=== PATIENT | female | born 1980 | race Caucasian/White ===

== ENCOUNTER → 2018-07-13 10:56 | Outpatient (REF) | payer BC, SELFPAY ==
--- NOTE | 2018-07-13 10:36 | SKI_PTH ---
PATIENT: Katie Garcia LOC: [facility] U#:[id number] AGE/SX: 45/F ROOM: RE07/13/[address]: Kian Thakkar DO : 1980 BED: DIS: SPEC #: [id number] RECD: 07/13/18 17:42 STATUS: CLYDE REQ #: [id number] CHA: 07/13/18 10:[address]: Kian Thakkar DEPT: Surgical Specimen RECD BY: Sanjana Washington ENTERED: 07/13/18 17:43 SP TYPE: SKI OTHR DR: Lefty Kearney Tissues: 1 - SKIN BIOPSY(SHAVE/PUNCH) Procedures: SKIN LEVEL 4 Comments: [id number]
== END ==
LOC: LBN 10:56
PROVIDERS: PCP Internal Medicine; Visit Provider Surgery
DX: L92.0 Granuloma annulare (principal)
CPT/HCPCS: 88305

== ENCOUNTER 2019-01-01 09:22 | Outpatient (CLI) | payer BC, SELFPAY ==
[2019-01-01 10:13] LABS: Abs Immature Grans 0.02 k/cumm (0.0-0.09); Absolute Basophil Count 0.02 k/cumm (0.0-0.2); Absolute Eosinophil Count 0.15 k/cumm (0.0-0.7); Absolute Lymphocyte Count 2.29 k/cumm (1.2-3.4); Absolute Neutrophil Count 5.14 k/cumm (1.2-6.7); Basophils % 0.2; Eosinophils % 1.8; HCT 45.1 % (36.0-46.0); HGB 15.7 g/dL (12.0-15.5); Immature Grans % 0.2; Lymphocytes % 28.2; Mean Corp. HGB Concentration 34.8 g/dL (32.0-36.0); Mean Corpuscular Hemoglobin 30.9 pg (27.0-33.0); Mean Corpuscular Volume 88.8 fL (80-95); Mean Platelet Volume 9.1 fL (8.0-11.0); Monocytes % 6.2; Neutrophils % 63.4; Platelet Count 310 x1000/uL (130-400); RBC 5.08 m/cumm (4.00-5.20); RBC Distribution Width 12.7 % (11.7-14.6); White Blood Cell Count 8.12 k/cumm (4.4-10.8)
[2019-01-01 11:14] LABS: ALT 33 U/L (12-78); AST 20 U/L (15-37); Albumin 3.8 g/dL (3.4-5.0); Alkaline Phosphatase 87 U/L (46-116); Anion Gap 9.1 mmol/L (3-11); BUN 17 mg/dL (7-18); Bilirubin, Total 0.5 mg/dL (0.2-1.0); CO2 27.9 mmol/L (21.0-32.0); CREATININE 0.92 mg/dL (0.55-1.02); Chloride 103 mmol/L (98-107); Cholesterol 197 mg/dL (50-200); Glucose 89 mg/dL (70-100); HDL Cholesterol 42 mg/dL (40-60); LDL CHOLESTEROL 140 mg/dL (<100); Potassium 4.3 mmol/L (3.5-5.1); Sodium 140 mmol/L (136-145); TSH 2.67 uIU/mL (0.358-3.74); Total Protein 7.3 g/dL (6.4-8.2); Triglyceride 80 mg/dL (30-150)
[2019-01-04 09:51] LABS: Rheumatoid Factor <8 IU/mL (<12.5)
[2019-01-04 10:18] LABS: Cyclic Citrullinated Peptide <2.5 U/mL (<5.0)
[2019-01-04 10:54] LABS: IgA 181 mg/dL (85-499); Interpretation SEE COMMENTS; Tissue Transglutaminase IgA <1.2 U/mL (<4.0)
[2019-01-04 14:46] LABS: ANA Interpretation Negative (NEGAT)
[2019-01-05 13:58] LABS: RNP Ab, IgG 7.1 Units (<20); SS-A Antibody 1.8 Units (<20); SS-B (La) Ab, IgG 2.7 Units (<20); Sm (Smith) Ab, IgG 7.8 Units (<20)
== END 2019-01-01 09:42 ==
PROVIDERS: PCP Internal Medicine; Visit Provider Internal Medicine Rheumatology
DX: R53.83 Other fatigue (principal); L65.9 Nonscarring hair loss, unspecified; Z79.899 Other long term (current) drug therapy; R19.7 Diarrhea, unspecified
CPT/HCPCS: 36415; 80053; 80061; 82784; 83516; 83721; 86200; 84443; 85025; 86038; 86235; 86431

== ENCOUNTER 2020-07-19 15:01 | Outpatient (REF) | payer BC, SELFPAY ==
--- NOTE | 2020-07-19 14:35 | SKI_PTH ---
PATIENT: Katie Garcia LOC: [facility] U#:[id number] AGE/SX: 39/F ROOM: RE07/19/[address]: Orlando Hernandez : 1980 BED: DIS: 07/19/2020 SPEC #: [id number] RECD: 07/20/20 12:50 STATUS: CLYDE REQ #: [id number] CHA: 07/19/20 14:[address]: Orlando Hernandez DEPT: Surgical Specimen RECD BY: Sanjana Washington ENTERED: 07/20/20 12:51 SP TYPE: SHERRY PALACIOS DR: Lefty Kearney Tissues: 1 - SKIN BIOPSY(SHAVE/PUNCH) Procedures: IMMUNOPEROXIDASE STAIN SKIN LEVEL 4 Comments: [id number]
== END 2020-07-19 15:21 ==
LOC: NCHCN 15:01
PROVIDERS: PCP Internal Medicine; Visit Provider Physician Assistant
DX: D22.71 Melanocytic nevi of right lower limb, including hip (principal)
CPT/HCPCS: 88305; 88361

== ENCOUNTER 2023-07-10 00:55 | Outpatient (CLI) | payer BC, SELFPAY ==
[2023-07-10 10:22] LABS: HCT 47.2 % (36.0-46.0); HGB 16.4 g/dL (11.2-15.7); MCHC 34.7 % (32.0-36.0); MCV 89 fL (80-95); MPV 8.5 fL (8.0-11.0); Platelet Count 337 10^3/uL (130-400); RBC 5.29 10^6/uL (3.93-5.22); RDW 12.1 % (11.7-14.6); RDW-SD 39.4 fL; WBC 9.72 10^3/uL (4.4-10.8)
[2023-07-10 10:52] LABS: ALT 97 U/L (14-59); AST 43 U/L (15-37); Alkaline Phosphatase 96 U/L (46-116); Anion Gap 7.6 mmol/L (3-11); BUN 12 mg/dL (7-18); Bilirubin, Total 0.6 mg/dL (0.2-1.0); CO2 29.4 mmol/L (21.0-32.0); Calcium 9.1 mg/dL (8.5-10.1); Calculated LDL 150 mg/dL (<100); Chloride 101 mmol/L (98-107); Cholesterol 209 mg/dL (<200); Estimated GFR 71.69 (mL/min/1.73m2); Glucose 86 mg/dL (74-106); HDL Cholesterol 43 mg/dL (40-60); Sodium 138 mmol/L (136-145); Total Protein 7.7 g/dL (6.4-8.2); Triglyceride 84 mg/dL (<150)
[2023-07-10] MEDS: Normal Saline - Diluent 50 ML VIAL IJ (10:54)
[2023-07-10] MEDS: Normal Saline Flush 10 ML SYR IJ (10:56)
[2023-07-10] MEDS: Barium Sulfate 2% W/V-Berry Smoothie 450 ML BTL 900 ML PO (10:58)
[2023-07-10] MEDS: Omnipaque 350 MG/ML 100 ML BTL IJ (11:00)
--- NOTE | 2023-07-10 11:05 | DI.CT_ITS ---
Exam(s) CT ABDOMEN PELVIS W EXAM: CT ABDOMEN PELVIS W CLINICAL HISTORY: ABD MASS, R19.00 TECHNIQUE: Imaging Protocol: Axial computed tomography images with coronal and sagittal reformatted images were created and reviewed CONTRAST MATERIAL: Intravenous: Omnipaque 350 Contrast volume:100 mL Oral: Yes COMPARISON: No exams were available for comparison FINDINGS: ABDOMEN: Lung Bases: Normal where visualized. Liver: Fatty infiltration of the liver. No measurable mass. Portal, Superior Mesenteric, and Splenic Veins: Unremarkable. Gallbladder and Biliary Tract: No radiodense calculus or dilation. Pancreas: Normal density, no abnormal calcifications or inflammatory process. Spleen: Normal. Adrenals: No masses seen. Kidneys: Normal size, contour and axis. No radiodense stones or obstructive uropathy. No masses seen. Abdominal Aorta: Abdominal portion non-dilated. Mild atherosclerosis. Bowel: No obstruction or bowel wall thickening. Appendix is unremarkable. Peritoneal Cavity: No ascites, collection or mesenteric inflammatory response. No free air. Lymph Nodes: Within normal limits. Bones: Within normal limits for the patient's age. Soft Tissues: Unremarkable. PELVIS: Bladder: Symmetric distention, no gross wall thickening. Reproductive Organs: An IUD in place. There is a 2.4 by 3.4 cm fibroid arising from the uterus. Lymph Nodes: Within normal limits. Bones: Within normal limits for the patient's age. IMPRESSION: 1. No acute abdominal or pelvic process. 2. 3.4 cm uterine fibroid. RADIATION DOSE DELIVERED: 1,036.17mGy.cm Total DLP DATA REPOSITORY: All CT scans at this facility are submitted to the National Radiology Data Registry (NRDR) Dose Index Registry (DIR) with the [employer] (A[employer]). RADIATION OPTIMIZATION: All CT scans at this facility use at least one of these dose optimization te chniques: automated exposure control; mA and/or kV adjustment per patient size (includes targeted exa ms where dose is matched to clinical indication); or iterative reconstruction.
== END 2023-07-10 01:15 ==
PROVIDERS: PCP Internal Medicine; Visit Provider Nurse Practitioner Family
DX: D25.9 Leiomyoma of uterus, unspecified; R19.00 Intra-abdominal and pelvic swelling, mass and lump, unspecified site
CPT/HCPCS: 80053; 80061; 85027; 74177; J3490

== ENCOUNTER 2023-10-20 22:15 | Outpatient (REF) | payer BC, SELFPAY | END 2023-10-20 22:16 | disposition home or self-care (01) | LOC: NCHCN 22:15 | PROVIDERS: PCP Physician Assistant; Visit Provider Physician Assistant | DX: J02.9 Acute pharyngitis, unspecified (principal) | CPT/HCPCS: 87070 ==

== ENCOUNTER → 2024-02-26 13:51 | Outpatient (CLI) | payer BC, SELFPAY ==
--- NOTE | 2024-02-26 08:29 | DI.MAMMO_ITS ---
Exam(s) MAMMO SCREENING EXAM: MAMMO SCREENING CLINICAL HISTORY: SCREENING, Z12.31 TECHNIQUE: Bilateral full field digital CC and MLO mammographic images were obtained with 3D tomosyn thesis and utilizing computer aided detection (CAD). COMPARISON: This is a baseline examination. FINDINGS: Masses/Architectural Distortion: None seen. Microcalcifications: No suspicious pleomorphic-type are seen. Skin Thickening/Nipple Retraction: None. IMPRESSION: 1. No evidence of malignancy noted. 2. Unless there is more urgent need, screening mammography is recommended, as per [employer] guidelines. BI-RADS Category 1 - Negative Breast Density - Category B - Scattered areas of fibroglandular density Breast density category C or D implies that the patient has dense breast tissue. Dense breast tissue is very common and is not abnormal but dense breast tissue can make it harder to find cancer on a ma mmogram. Also, dense breast tissue may increase their breast cancer risk. This information about the result of the mammogram report was provided to the patient to raise their awareness. Use this report when you speak with the patient about their risks for breast cancer, which includes their family hist ory. At that time, you may recommend for more screening tests (Ultrasound or MRI) as they might be us eful based on their risk. A negative radiographic report should not delay biopsy if a dominant or clinically suspicious mass is present. Up to ten percent of cancers are not identified on mammography. A negative report may reinforce clinical impression. Adenosis and dense breasts may obscure an underlying neoplasm. False positive reports average 6 to 10%. Patient will receive a letter notifying them of these results.
== END ==
PROVIDERS: PCP Internal Medicine; Visit Provider Nurse Practitioner Family
DX: Z12.31 Encounter for screening mammogram for malignant neoplasm of breast (principal)
CPT/HCPCS: 77063; 77067

== ENCOUNTER 2024-04-12 13:44 | Outpatient (REF) | payer BC, SELFPAY ==
--- NOTE | 2024-04-12 13:15 | PAPFT_PTH ---
PATIENT: Katie Garcia LOC: [facility] U#:[id number] AGE/SX: 43/F ROOM: RE04/12/[address]: Kimmy Salazar NP : 1980 BED: DIS: 04/12/2024 SPEC #: [id number] RECD: 04/12/24 18:14 STATUS: CLYDE RIVERS #: [id number] CHA: 04/12/24 13:[address]: Kimmy Salazar NP DEPT: [facility] Cytology RECD BY: Sanjana Washington ENTERED: 04/12/24 18:15 SP TYPE: PAPFT OTHR DR: Camila Phipps Tissues: 1 - CX/ENDOCX FOR PAP SMEARS Procedures: PAP THIN PREP/[facility] Screening HPV DNA PROBE Comments: [id number]
== END 2024-04-12 13:45 | disposition home or self-care (01) ==
LOC: LBN 13:44
PROVIDERS: PCP Nurse Practitioner Family; Visit Provider Nurse Practitioner Women's Health
DX: Z12.4 Encounter for screening for malignant neoplasm of cervix (principal)
CPT/HCPCS: 88142; 87624

== ENCOUNTER 2025-01-20 16:02 | Outpatient (REF) | payer BC, SELFPAY ==
[2025-01-20 22:02] LABS: HCT 51.4 % (36.0-46.0); HGB 17.8 g/dL (11.2-15.7); MCH 31.1 pg (27.0-33.0); MCHC 34.6 % (32.0-36.0); MCV 90 fL (80-95); MPV 9.8 fL (8.0-11.0); Platelet Count 302 10^3/uL (130-400); RBC 5.72 10^6/uL (3.93-5.22); RDW 12.5 % (11.7-14.6); RDW-SD 40.6 fL; WBC 10.33 10^3/uL (4.4-10.8)
[2025-01-20 22:21] LABS: ALT 31 U/L (14-59); AST 21 U/L (15-37); Albumin 4.7 g/dL (3.4-5.0); Alkaline Phosphatase 99 U/L (46-116); Anion Gap 7.3 mmol/L (3-11); BUN 13 mg/dL (7-18); Bilirubin, Total 0.69 mg/dL (0.2-1.0); CO2 28.7 mmol/L (21.0-32.0); CREATININE 0.8 mg/dL (0.55-1.02); Calcium 9.6 mg/dL (8.5-10.1); Calculated LDL 111 mg/dL (<100); Chloride 105 mmol/L (98-107); Cholesterol 190 mg/dL (<200); Estimated GFR 92.54 (mL/min/1.73m2); Glucose 85 mg/dL (74-106); HDL Cholesterol 66 mg/dL (40-60); Potassium 4.6 mmol/L (3.5-5.1); Sodium 141 mmol/L (136-145); Total Protein 8.1 g/dL (6.4-8.2); Triglyceride 66 mg/dL (<150)
== END 2025-01-20 16:03 | disposition home or self-care (01) ==
LOC: NCHCN 16:02
PROVIDERS: PCP Nurse Practitioner Family; Visit Provider Nurse Practitioner Family
DX: Z00.00 Encounter for general adult medical examination without abnormal findings (principal)
CPT/HCPCS: 80053; 80061; 85027

== ENCOUNTER 2025-02-09 13:57 | Outpatient (CLI) | payer BC, SELFPAY ==
[2025-02-10 18:24] LABS: Erythropoietin 7.8 mIU/mL (2.6 - 18.5)
[2025-02-15 18:15] LABS: JAK2 Sequencing Result see interpretation
== END 2025-02-09 13:58 | disposition home or self-care (01) ==
LOC: LBO 13:58
PROVIDERS: PCP Nurse Practitioner Family; Visit Provider Nurse Practitioner Family
DX: D75.1 Secondary polycythemia (principal)
CPT/HCPCS: 0027U; 36415; 82668

== ENCOUNTER 2025-04-08 00:39 | Outpatient (CLI) | payer BC, SELFPAY ==
--- NOTE | 2025-04-08 14:08 | DI.MAMMO_ITS ---
Exam(s) MAMMO SCREENING EXAM: MAMMO SCREENING CLINICAL HISTORY: Screening, Z12.31. TECHNIQUE: Bilateral full field digital CC and MLO mammographic images were obtained with 3D tomosyn thesis and utilizing computer aided detection (CAD). COMPARISON: Prior baseline mammogram of January 2024 was reviewed FINDINGS: There has been no significant change in the appearance and distribution of the fibroglandular tissue. There are no new spiculated masses nor malignant appearing microcalcification groups. There is no significant architectural distortion nor skin thickening-retraction. IMPRESSION: No radiographic evidence of malignancy. BI-RADS Category 1 - Negative Breast Density - Category B - There are scattered areas of fibroglandular density. Breast density Category C or D implies that the patient has dense breast tissue. Dense breast tissue can make it harder to find cancer on a mammogram. Dense breast tissue is also associated with an incr eased risk of breast cancer. This information about the result of the mammogram report was provided to the patient to raise their awareness. Use this report when you speak with the patient about their risks for breast cancer, which includes their family history. At that time, you may recommend additional screening tests (Ultrasoun d or MRI) as these tests may add significant information. A negative radiographic report should not delay biopsy if a dominant or clinically suspicious mass is present. Up to ten percent of cancers are not identified on mammography. A negative report may reinforce clinical impression. Adenosis and dense breasts may obscure an underlying neoplasm. False positive reports average 6 to 10%. Patient will receive a letter notifying them of these results.
== END 2025-04-08 00:59 ==
PROVIDERS: PCP Nurse Practitioner Family; Visit Provider Nurse Practitioner Family
DX: Z12.31 Encounter for screening mammogram for malignant neoplasm of breast (principal); R92.323 Mammographic fibroglandular density, bilateral breasts
CPT/HCPCS: 77063; 77067